=== PATIENT | male | born 2000 | race African-American/Black ===

== ENCOUNTER 2024-05-09 15:29 | Inpatient (IN) | payer OTHER ==
[~2024-05-09] VITALS: Ht 175.3 cm; Wt 72.7 kg
[2024-05-09 16:50] LABS: HEMATOCRIT 39.7 % (42.0-52.0); HEMOGLOBIN 13.6 g/dl (13.5-17.5); MEAN CORPUSCULAR HEMOGLOBIN 28.6 pg (27.0-33.0); MEAN CORPUSCULAR HGB CONC 34.3 g/dl (32.0-36.5); MEAN CORPUSCULAR VOLUME 83.4 fl (80.0-96.0); PLATELET COUNT, AUTOMATED 224 10^3/uL (150-450); RED BLOOD COUNT 4.76 10^6/uL (4.30-6.10); WHITE BLOOD COUNT 3.8 10^3/uL (4.0-10.0)
[2024-05-09 17:17] LABS: AMPHETAMINES LEVEL URINE NEGATIVE (NEGATIVE); BARBITURATES URINE NEGATIVE (NEGATIVE); BENZODIAZEPINES URINE NEGATIVE (NEGATIVE); CANNABINOIDS URINE NEGATIVE (NEGATIVE); COCAINE METABOLITE URINE NEGATIVE (NEGATIVE); METHADONE URINE NEGATIVE (NEGATIVE); OPIATES URINE NEGATIVE (NEGATIVE); PHENCYCLIDINE URINE NEGATIVE (NEGATIVE)
[2024-05-09 17:19] LABS: ETHYL ALCOHOL (ETHANOL) 0.007 % (0.000-0.010)
[2024-05-09 17:21] LABS: ALBUMIN 4.2 G/DL (3.2-5.2); ALKALINE PHOSPHATASE 98 U/L (46-116); ALT/SGPT 36 U/L (7.0-40); AST/SGOT 42 U/L (<34); BILIRUBIN,DIRECT 0.2 MG/DL (<0.4); BILIRUBIN,TOTAL 0.7 MG/DL (0.3-1.2); BLOOD UREA NITROGEN 14 MG/DL (9-23); CALCIUM LEVEL 9.8 MG/DL (8.5-10.1); CARBON DIOXIDE LEVEL 27 MMOL/L (20-31); CHLORIDE LEVEL 109 MMOL/L (98-107); CREATININE FOR GFR 1.27 MG/DL (0.70-1.30); GLOMERULAR FILTRATION RATE > 60.0 (>60); GLUCOSE, FASTING 83 MG/DL (60-100); POTASSIUM SERUM 4.6 MMOL/L (3.5-5.1); SALICYLATE LEVEL < 3.0 MG/DL (<30); SODIUM LEVEL 139 MMOL/L (136-145); TOTAL PROTEIN 7.3 G/DL (5.7-8.2)
[2024-05-09 17:23] LABS: THYROID STIMULATING HORMONE 0.595 uIU/ML (0.55-4.78)
[2024-05-09] MEDS ORDERED: HOME MED LIST COMPLETE! XX SCH (17:25)
[2024-05-09] MEDS ORDERED: NICOTINE 21MG/24HR 1 EA TRANSDERMAL TD PRN (19:50)
[2024-05-09] MEDS ORDERED: IBUPROFEN 400MG TAB PO PRN (19:50)
[2024-05-09] MEDS ORDERED: MOM 30ML SUSPENSION UDC PO PRN (19:50)
[2024-05-09] MEDS ORDERED: ACETAMINOPHEN 325 MG TAB PO PRN (19:50)
[2024-05-09] MEDS ORDERED: MAALOX 30 ML SUSP *UDC PO PRN (19:50)
[2024-05-09 21:15] VITALS: BP 126/62; TEMP 98.2; O2SAT 99
[2024-05-10] MEDS: LORazepam 1 MG TAB PO ONE (08:58)
[2024-05-10] MEDS ORDERED: OLANZapine 5 MG TAB PO SCH (09:00)
[2024-05-10] MEDS ORDERED: LORazepam 2 MG TAB PO PRN (11:50)
[2024-05-10] MEDS: THIAMINE 100 MG TAB PO SCH (12:49)
[2024-05-10] MEDS: FOLIC ACID 1MG TAB PO SCH (12:49)
[2024-05-10] MEDS: MULTIVITAMINS/MINERALS THERAP 1 TAB PO SCH (12:49)
[2024-05-10 15:09] VITALS: BP 115/56; TEMP 97.6; O2SAT 100
[2024-05-10 15:10] VITALS: BP 115/56
[2024-05-10] MEDS: OLANZapine 5 MG TAB PO SCH (20:19)
[2024-05-10 22:00] VITALS: BP 124/60; TEMP 98.1; O2SAT 100
[2024-05-11 06:29] VITALS: BP 106/59; TEMP 97.8; O2SAT 99
[2024-05-11 08:35] VITALS: BP 117/61
[2024-05-11 08:36] VITALS: BP 117/61; TEMP 98.1; O2SAT 100
[2024-05-11 15:00] VITALS: BP 121/59; TEMP 98.1; O2SAT 100
[2024-05-11 15:01] VITALS: BP 121/59
[2024-05-11 22:58] VITALS: BP 123/57
[2024-05-12 06:40] VITALS: BP 108/54; TEMP 98.1; O2SAT 100
[2024-05-12] MEDS: traZODone 50 MG TAB PO PRN (20:23)
[2024-05-12] MEDS: diphenhydrAMINE 25MG CAP PO PRN (20:23)
[2024-05-12] MEDS: OLANZapine ORAL DISINTEGRATING TAB 5MG PO PRN (21:53)
[2024-05-13 16:25] VITALS: BP 116/57; TEMP 98.4
[2024-05-13] MEDS: OLANZapine 10 MG TAB PO SCH (20:49)
[2024-05-14 06:51] VITALS: BP 120/72; TEMP 97.6; O2SAT 100
[2024-05-14] MEDS ORDERED: OLAN1TAB20 PO (08:59)
== END 2024-05-14 11:30 | disposition home or self-care (01) | DRG 885 ==
LOC: M ED 15:29 → M ED INP 19:49 → M PSY 21:00
PROVIDERS: ADMIT Psychiatry & Neurology Psychiatry; ATTEND Psychiatry & Neurology Psychiatry
DX: F29 Unspecified psychosis not due to a substance or known physiological condition (principal); F10.10 Alcohol abuse, uncomplicated

== ENCOUNTER 2025-04-08 12:43 | Inpatient (IN) | payer OTHER ==
[~2025-04-08] VITALS: Ht 180.3 cm; Wt 77.3 kg
[~2025-04-08 12:43] MED LIST: OLAN1TAB20 PO
[2025-04-08 13:39] LABS: BASO # 0.0 10^3/uL (0.0-0.2); BASO % 0.7 % (0.0-1.0); EOS # 0.0 10^3/uL (0.0-0.5); EOS % 0.6 % (0.0-3.0); LYMPH # 1.1 10^3/uL (1.5-5.0); LYMPH % 20.6 % (24.0-44.0); MONO # 0.4 10^3/uL (0.0-0.8); MONO % 7.3 % (2.0-8.0); NEUTROPHILS # 3.8 10^3/uL (1.5-8.5); NEUTROPHILS % 70.6 % (36.0-66.0); PLATELET COUNT, AUTOMATED 211 10^3/uL (150-450)
[2025-04-08] MEDS ORDERED: OLANZapine ORAL DISINTEGRATING TAB 5MG PO ONE (13:40)
[2025-04-08 14:20] LABS: AMPHETAMINES LEVEL URINE NEGATIVE (NEGATIVE)
[2025-04-08 14:21] LABS: BARBITURATES URINE NEGATIVE (NEGATIVE); BENZODIAZEPINES URINE NEGATIVE (NEGATIVE); CANNABINOIDS URINE NEGATIVE (NEGATIVE); COCAINE METABOLITE URINE NEGATIVE (NEGATIVE); METHADONE URINE NEGATIVE (NEGATIVE); OPIATES URINE NEGATIVE (NEGATIVE); PHENCYCLIDINE URINE NEGATIVE (NEGATIVE)
[2025-04-08] MEDS ORDERED: HOME MED LIST COMPLETE! XX SCH (14:50)
[2025-04-08 15:29] LABS: ALT/SGPT 59 U/L (7.0-40); AST/SGOT 50 U/L (<34); CALCIUM LEVEL 8.9 MG/DL (8.5-10.1); CARBON DIOXIDE LEVEL 23 MMOL/L (20-31); CHLORIDE LEVEL 107 MMOL/L (98-107); CREATININE FOR GFR 1.18 MG/DL (0.70-1.30); ETHYL ALCOHOL (ETHANOL) < 0.003 % (0.000-0.010); GLOMERULAR FILTRATION RATE 88.9 (>60); POTASSIUM SERUM 4.1 MMOL/L (3.5-5.1); SALICYLATE LEVEL < 3.0 MG/DL (<30); SODIUM LEVEL 140 MMOL/L (136-145)
[2025-04-08] MEDS ORDERED: IBUPROFEN 400 MG TAB PO PRN (15:50)
[2025-04-08] MEDS ORDERED: MOM 30 ML SUSPENSION UDC PO PRN (15:50)
[2025-04-08] MEDS ORDERED: MAALOX 30 ML SUSP *UDC PO PRN (15:50)
[2025-04-08] MEDS ORDERED: ACETAMINOPHEN 325 MG TAB PO PRN (15:50)
[2025-04-08 17:22] VITALS: BP 138/80; O2SAT 99
[2025-04-08] MEDS: OLANZapine ORAL DISINTEGRATING TAB 5MG PO ONE (18:01)
[2025-04-08] MEDS: traZODone 50 MG TAB PO PRN (19:51)
[2025-04-08] MEDS: LORazepam 1 MG TAB PO ONE (21:19)
[2025-04-09] MEDS ORDERED: HALOPERIDOL 10 MG TAB PO STA (03:00)
[2025-04-09] MEDS ORDERED: HALOPERIDOL LACTATE 5 MG/ML VIAL IM STA (03:09)
[2025-04-09] MEDS: diphenhydrAMINE 50 MG/ML VIAL IM STA (03:23)
[2025-04-09] MEDS: HALOPERIDOL LACTATE 5 MG/ML VIAL IM STA (03:24)
[2025-04-09 03:35] VITALS: BP 138/80; TEMP 99; O2SAT 99
[2025-04-09] MEDS: RISPERIDONE 1 MG TAB PO SCH (10:28)
[2025-04-09] MEDS: OLANZapine ORAL DISINTEGRATING TAB 5MG PO PRN (14:55)
[2025-04-09 15:34] VITALS: BP 122/68; TEMP 97.8; O2SAT 99
[2025-04-10] MEDS: LITHIUM CARBONATE 300 MG CAP PO SCH (11:06)
[2025-04-10 15:43] VITALS: BP 111/51; TEMP 98.3; O2SAT 99
[2025-04-11 06:38] VITALS: BP 118/56; TEMP 97.9; O2SAT 100
[2025-04-11 15:11] VITALS: BP 145/76; TEMP 97.2; O2SAT 99
[2025-04-12 06:04] VITALS: BP 118/58; TEMP 98.6; O2SAT 98
[2025-04-12 14:51] VITALS: BP 123/59; TEMP 97; O2SAT 96
[2025-04-13 06:30] VITALS: BP 104/70; TEMP 97.1; O2SAT 100
[2025-04-13 16:13] VITALS: BP 125/52; TEMP 98.2; O2SAT 100
[2025-04-14 06:49] VITALS: BP 110/56; TEMP 98.2; O2SAT 100
[2025-04-14 09:48] VITALS: BP 110/56; TEMP 98.2; O2SAT 100
[2025-04-14 16:37] VITALS: BP 126/57; TEMP 98.1; O2SAT 100
[2025-04-14] MEDS ORDERED: PALIPERIDONE PAL 234MG/1.5ML INJ (FREE PSY INPT ONLY) IM ONE (18:00)
[2025-04-15 06:43] VITALS: BP 103/56; TEMP 98; O2SAT 100
[2025-04-15 15:02] VITALS: BP 114/66; TEMP 97.8; O2SAT 100
[2025-04-16 06:23] VITALS: BP 102/54; TEMP 98.9; O2SAT 100
[2025-04-16 14:45] VITALS: BP 133/63; TEMP 97.4; O2SAT 99
[2025-04-16] MEDS: LITHIUM CARBONATE **ER** 300 MG PO SCH (20:14)
[2025-04-17 06:15] VITALS: BP 119/57; TEMP 98.8; O2SAT 100
[2025-04-17] MEDS ORDERED: RISP-106 PO (08:25)
[2025-04-17] MEDS ORDERED: HYDR-3363 PO (08:25)
[2025-04-17] MEDS ORDERED: TRAZ-252 PO (08:25)
[2025-04-17] MEDS ORDERED: LITH1TAB PO (08:25)
[2025-04-18 12:47] LABS: TESTOSTERONE FREE (DIRECT) 16.8 pg/mL (35.0-155.0); TESTOSTERONE TOTAL FOR T&D 110.0 ng/dL (250-1100)
== END 2025-04-17 10:27 | disposition home or self-care (01) | DRG 885 ==
LOC: EDBD 12:43 → M ED 12:43 → M ED INP 15:46 → M PSY 16:49
PROVIDERS: ADMIT General Practice; ATTEND General Practice
DX: F31.5 Bipolar disorder, current episode depressed, severe, with psychotic features (principal); F41.9 Anxiety disorder, unspecified; Z88.2 Allergy status to sulfonamides; Z88.6 Allergy status to analgesic agent; Z88.8 Allergy status to other drugs, medicaments and biological substances; Z62.810 Personal history of physical and sexual abuse in childhood

== ENCOUNTER → 2025-06-24 | Outpatient (REF) ==
[~2025-06-24] MED LIST changes: +HYDR-3363 PO; +LITH1TAB PO; +RISP-106 PO; +TRAZ-252 PO
== END ==
LOC: M PLAIMG 10:06
PROVIDERS: ATTEND Internal Medicine
DX: R52 Pain, unspecified (principal)